=== PATIENT | female | born 1990 | race Caucasian/White ===

== ENCOUNTER 2016-10-16 16:59 | Observation (INO) | payer OTHER ==
[~2016-10-16] VITALS: Ht 157.5 cm; Wt 87.0 kg
[2016-10-16] MEDS ORDERED: CLINDAMYCIN PMX 900MG/50ML 50 ML IV ONE (17:30)
[2016-10-16] MEDS ORDERED: D5%-LACTATED RINGERS 1,000 ML IV SCH (17:30)
[2016-10-16] MEDS ORDERED: PLEASE ENTER HEIGHT AND WEIGHT MC SCH (18:00)
[2016-10-16] MEDS ORDERED: ESOM20CA31 PO (18:48)
[2016-10-16] MEDS ORDERED: LORA5TAB4 PO (18:49)
[2016-10-16] MEDS ORDERED: CLINDAMYCIN PMX 900MG/50ML 50 ML ONE (18:57)
[2016-10-16] MEDS ORDERED: METOCLOPRAMIDE 5 MG/ML, 2ML ONE (19:59)
[2016-10-16] MEDS ORDERED: SODIUM CITRATE/CITRIC ACID 30 ML UDC ONE (19:59)
[2016-10-16] MEDS ORDERED: LACTATED RINGERS 1,000 ML IVBOLUS ONE (21:00)
[2016-10-16] MEDS ORDERED: SODIUM CITRATE/CITRIC ACID 30 ML UDC PO ONE (21:30)
[2016-10-16] MEDS ORDERED: METOCLOPRAMIDE 5 MG/ML, 2ML IVPush ONE (21:30)
[2016-10-16] MEDS ORDERED: FENTANYL PF 100 MCG/2ML IVPush ONE (21:30)
[2016-10-16] MEDS ORDERED: BUPIVACAINE 0.25% ONE (21:58)
[2016-10-16] MEDS ORDERED: LIDOCAINE 1%, 20ML ONE (21:58)
[2016-10-16] MEDS ORDERED: FENTANYL PF 1000 MCG/20ML ONE (22:01)
[2016-10-16] MEDS ORDERED: FENTANYL PF 100 MCG/2ML ONE ×2 (22:01)
[2016-10-16] MEDS ORDERED: OXYcodone/APAP 5/325MG TABLET PO PRN (23:00)
== END 2016-10-17 04:01 | disposition home or self-care (01) ==
LOC: INTOOBSV 16:59 → LDIP 16:59
PROVIDERS: ADMIT Obstetrics & Gynecology Maternal & Fetal Medicine; ATTEND Obstetrics & Gynecology Maternal & Fetal Medicine
DX: O26.872 Cervical shortening, second trimester (principal); O30.042 Twin pregnancy, dichorionic/diamniotic, second trimester; Q51.810 Arcuate uterus; E28.2 Polycystic ovarian syndrome; O34.32 Maternal care for cervical incompetence, second trimester; O99.512 Diseases of the respiratory system complicating pregnancy, second trimester; J45.909 Unspecified asthma, uncomplicated; Z3A.17 17 weeks gestation of pregnancy
CPT/HCPCS: 36415; 59320; 85025; 96365; 96375; G0378; J2765; J3010; J3490; J7121